=== PATIENT | female | born 1995 | race Asian ===

== ENCOUNTER 2017-02-20 17:23 | Emergency (ER) | payer SELFPAY ==
--- NOTE | 2017-02-20 18:06 | ED Physician Chart ---
Chief Complaint/HPI - Patient Information Date Seen:: 02/20/17 Time Seen:: 17:30 Chief Complaint:: left earache, uri History of Present Illness:: Previously healthy 21-year-old female comes to the emergency room with a complaint of 4 days of left earache associated with a upper respiratory tract infection with mild cough but no sore throat no headache no runny nose and no sinus congestion. Patient had a fever yesterday of 101 that has not had any subsequent fever but is taking 1600 mg of ibuprofen several times a day. The patient has no antecedent history of immunosuppressive disease and is a nonsmoker with no obvious ill contacts or foreign travel. Allergies:: Allergies Allergy/AdvReac Type Severity Reaction Status Date / Time No Known Allergies Allergy Verified 02/20/17 17:33 Vitals:: Vital Signs - 8 hr 02/20/17 17:23 Temp 97.6 F HR 75 RR 16 BP 132/85 O2 Sat % 100 Historian:: Patient Review:: Nurse's Note Reviewed Review of Systems - Review of Systems General/Constitutional: Fever Other: The review of systems is otherwise unremarkable except for those findings found in the history of present illness. Past Medical History - Past Medical History Obtainable: Yes Past Medical History: No significant medical hx Family History: None Social History: Non Smoker, No Drug Use, Single, Employed Surgical History: None Psychiatricy History: None Medication: Reviewed Family Medical History - Family Member Mother Other Medical History: denies family medical history Physical Exam - Physical Examination General/Constitutional: Awake, Well-developed, well-nourished, Alert, GCS 15, Non-toxic appearing, Ambulatory Other Gen/Cons comments:: The pertinent physical findings in this patient are limited to the HEENT and skin exams. Skin is normal with no rash and good turgor. The eyes are normal, the nose is normal, the oropharynx is normal with no evidence of redness swelling, the neck is without lymphadenopathy or stridor. The right tympanic membrane is slightly bulging and slightly dull but the left tympanic membrane is grossly distorted traumatic bulging. The left tympanic membrane is otherwise normal without redness, perforation, annular erythema, and the external auditory canal appears normal. The preauricular and postauricular node exam is normal. Head: Atraumatic Eyes: Lids, conjuctiva normal, PERRL, EOMI Skin: No rash, No skin lesions, Well hydrated Neck: Nontender, Full ROM w/o pain Respiratory: Nl effort/Exclusion Cardio Vascular: RRR Neuro/Psych: Alert/oriented, Judgement/insight normal, Mood normal ED Septic Shock - . Is Septic Shock (SBP<90, OR Lactate>4 mmol\L) present?: No - <6hrs of presentation: Vital Signs: Vital Signs - 8 hr 02/20/17 17:23 Temp 97.6 F HR 75 RR 16 BP 132/85 O2 Sat % 100 Reassessment (Disposition) - Reassessment Reassessment Condition:: Unchanged - Diagnosis Diagnosis:: Bilateral serous otitis media, left greater than right. URI with history of fever yesterday. - Aftercare/Follow up Instructions Aftercare/Follow-Up Instructions:: Counseled pt regarding lab results/diagnosis & need follow up, Refer to Discharge Instructions - Patient Disposition Discharge/Transfer:: Home (I had a lengthy discussion with the patient about her symptoms and my findings. I believe that the patient currently has serous otitis media but does not have a bacterial infection at this time. The patient understands that this condition may change at any time and therefore I have prescribed Bactrim DS twice a day 10 days and I am not recommending that the patient for that and last she develops fever, more severe pain, or prolonged ear pain for more than 24-48 hours.) ED Discharge Plan - Patient Disposition Admit/Discharge/Transfer: PT DISCHARGED HOME Condition at Disposition: Stable Additional Instructions: Ibuprofen 400-600 mg by mouth 3 times a day with food. Continue local anesthetic ear drops 4 times a day. Apparently for the Bactrim DS antibiotic prescription if increasingly with fever and pain. Make a routine follow-up appointment with your clinic physician. Return to the emergency room for unanticipated severe complications such as high fever, severe headache, nausea and vomiting, or severe pain.
== END 2017-02-20 18:10 | disposition home or self-care (01) ==
LOC: ER 17:23
DX: H66.93 Otitis media, unspecified, bilateral (principal); J06.9 Acute upper respiratory infection, unspecified
CPT/HCPCS: Z7502